=== PATIENT | male | born 1940 | race Caucasian/White ===

== ENCOUNTER → 2016-04-15 | Outpatient (CLI) | payer OTHER ==
[~2016-04-15] MED LIST: ACTOS30 MG PO; AZITHROMYCIN250 MG PO; BACTRIM,SEPT1 TABLET PO; CEFTIN500 MG PO; COUMADIN1 MG PO; DIGOXIN125 MCG PO; DOCU SOFT100 MG PO; FEROSUL325 MG PO; GLIPIZIDE10 M1 PO; GLUCOPHAGE1000 M1 PO; K-Dur PO; KLOR-CON20 MEQ PO; LANTUS 10100 UNITS/ SC; LASIX40 MG PO; LOVENOX100 MG/1 M SC; LOW DOSE ASPIRI81 M2 PO; MAGOX 400400 MG PO; MULTIVITAMIN1 EAC2 PO; MYCOPHENOLATE500 MG PO; NORVASC5 MG PO; NOVOLOG 10100 UNITS/ SC; NOVOLOG PE100 UNITS/ SC; OSCAL, OYSTER500 MG PO; PERCOCET 5/31 TABLET PO; PRAVACHOL40 MG PO; PRAVASTATIN SOD80 MG PO; PREDNISONE5 MG PO; PROGRAF0.5 MG PO; Proventil,Ventolin H IH; TENORMIN25 MG PO; TUMS500 MG PO; VALCYTE450 MG PO; VFEND200 MG PO; VITAMIN D1000 UNIT PO; ZANTAC150 MG PO; ZESTRIL,PRINIVI10 MG PO
== END | disposition home or self-care (01) ==
LOC: RES 12:59
DX: Z94.2 Lung transplant status (principal); D89.9 Disorder involving the immune mechanism, unspecified
CPT/HCPCS: 94010

== ENCOUNTER → 2016-04-22 | Outpatient (CLI) | payer OTHER | END | disposition home or self-care (01) | LOC: RES 09:45 | DX: Z94.2 Lung transplant status (principal); D89.9 Disorder involving the immune mechanism, unspecified | CPT/HCPCS: 94010 ==

== ENCOUNTER → 2016-04-29 | Outpatient (CLI) | payer OTHER | END | disposition home or self-care (01) | LOC: RES 10:00 | DX: Z94.2 Lung transplant status (principal); D89.9 Disorder involving the immune mechanism, unspecified | CPT/HCPCS: 94010 ==

== ENCOUNTER → 2016-05-06 | Outpatient (CLI) | payer OTHER | END | disposition home or self-care (01) | LOC: RES 09:41 | DX: Z94.2 Lung transplant status (principal); D89.9 Disorder involving the immune mechanism, unspecified | CPT/HCPCS: 94010 ==

== ENCOUNTER → 2016-05-20 | Outpatient (CLI) | payer OTHER | END | disposition home or self-care (01) | LOC: RES 08:56 | DX: Z94.2 Lung transplant status (principal); D89.9 Disorder involving the immune mechanism, unspecified | CPT/HCPCS: 94010 ==

== ENCOUNTER → 2016-06-10 | Outpatient (CLI) | payer OTHER | END | disposition home or self-care (01) | LOC: RES 09:00 | DX: Z94.2 Lung transplant status (principal); D89.9 Disorder involving the immune mechanism, unspecified | CPT/HCPCS: 94010 ==

== ENCOUNTER → 2016-08-05 | Outpatient (CLI) | payer OTHER | END | disposition home or self-care (01) | LOC: RES 10:00 | DX: Z94.2 Lung transplant status (principal); D89.9 Disorder involving the immune mechanism, unspecified | CPT/HCPCS: 94010 ==

== ENCOUNTER → 2016-09-02 | Outpatient (CLI) | payer OTHER | END | disposition home or self-care (01) | LOC: RES 08:39 | DX: Z94.2 Lung transplant status (principal); D89.9 Disorder involving the immune mechanism, unspecified | CPT/HCPCS: 94010 ==

== ENCOUNTER → 2016-09-30 | Outpatient (CLI) | payer OTHER | END | disposition home or self-care (01) | LOC: RES 08:51 | DX: Z94.2 Lung transplant status (principal); D89.9 Disorder involving the immune mechanism, unspecified | CPT/HCPCS: 94010 ==

== ENCOUNTER → 2017-02-03 | Outpatient (CLI) | payer OTHER ==
[~2017-02-03] MED LIST changes: +ASPIR-LOW81 MG PO; +BENZONATATE100 MG PO; -COUMADIN1 MG PO; +COUMADIN5 MG PO; +CRESEMBA186 MG PO; +FUROSEMIDE20 MG PO; +HUMALOG100 UNIT/1 SC; -LOW DOSE ASPIRI81 M2 PO; +MYCOPHENOLATE250 MG PO; +NOVOLOG 10100 UNITS/ SQ; -OSCAL, OYSTER500 MG PO; +PREDNISONE10 MG PO; -PREDNISONE5 MG PO; +PROAIR HFA8.5 GM IH; +PROGRAF1 MG PO; +VITAMIN D31000 UNI2 PO; +WARFARIN SODIUM5 MG PO
== END | disposition home or self-care (01) ==
LOC: RES 10:00
DX: Z94.2 Lung transplant status (principal); D89.9 Disorder involving the immune mechanism, unspecified
CPT/HCPCS: 94010

== ENCOUNTER → 2017-03-03 | Outpatient (CLI) | payer OTHER | END | disposition home or self-care (01) | LOC: RES 08:00 | DX: Z94.2 Lung transplant status (principal); D89.9 Disorder involving the immune mechanism, unspecified | CPT/HCPCS: 94010 ==

== ENCOUNTER → 2017-04-12 | Outpatient (CLI) | payer OTHER | END | disposition home or self-care (01) | LOC: RES 04-02 11:00 | DX: Z94.2 Lung transplant status (principal); D89.9 Disorder involving the immune mechanism, unspecified | CPT/HCPCS: 94010 ==

== ENCOUNTER → 2017-04-26 | Outpatient (CLI) | payer OTHER | END | disposition home or self-care (01) | LOC: RES 08:44 | DX: Z94.2 Lung transplant status (principal); D89.9 Disorder involving the immune mechanism, unspecified | CPT/HCPCS: 94010 ==

== ENCOUNTER → 2017-05-31 | Outpatient (CLI) | payer OTHER | END | disposition home or self-care (01) | LOC: RES 08:00 | DX: Z94.2 Lung transplant status (principal); D89.9 Disorder involving the immune mechanism, unspecified | CPT/HCPCS: 94010 ==

== ENCOUNTER → 2017-06-28 | Outpatient (CLI) | payer OTHER | END | disposition home or self-care (01) | LOC: RES 08:10 | DX: Z94.2 Lung transplant status (principal); D89.9 Disorder involving the immune mechanism, unspecified | CPT/HCPCS: 94010 ==

== ENCOUNTER → 2017-07-28 | Outpatient (CLI) | payer OTHER | END | disposition home or self-care (01) | LOC: RES 09:00 | DX: Z94.2 Lung transplant status (principal); D89.9 Disorder involving the immune mechanism, unspecified | CPT/HCPCS: 94010 ==

== ENCOUNTER 2017-08-12 09:09 | Day surgery (SDC) | payer OTHER ==
[~2017-08-12] VITALS: Ht 170.2 cm; Wt 97.0 kg
[~2017-08-12 09:09] MED LIST changes: +COUMADIN4 MG PO; +FLOMAX0.4 MG PO; +GABAPENTIN300 MG PO; +METOPROLOL TART25 MG PO
== END 2017-08-12 19:01 | disposition home or self-care (01) ==
LOC: CATH 09:09
PROVIDERS: Internal Medicine Interventional Cardiology
DX: Q24.5 Malformation of coronary vessels (principal); I42.9 Cardiomyopathy, unspecified; R06.02 Shortness of breath; Z94.2 Lung transplant status; J84.10 Pulmonary fibrosis, unspecified; I48.0 Paroxysmal atrial fibrillation; I10 Essential (primary) hypertension; E11.9 Type 2 diabetes mellitus without complications; E78.5 Hyperlipidemia, unspecified; Z86.711 Personal history of pulmonary embolism; Z87.891 Personal history of nicotine dependence; Z91.041 Radiographic dye allergy status; Z79.01 Long term (current) use of anticoagulants; Z79.82 Long term (current) use of aspirin; Z79.4 Long term (current) use of insulin; R63.5 Abnormal weight gain; Z68.33 Body mass index [BMI] 33.0-33.9, adult
CPT/HCPCS: 82948; 93005; C1750; C1769; C1887; C1894; J1200; J1644; J2250; J2765; J2930; J3010; J7040

== ENCOUNTER → 2017-08-25 | Outpatient (CLI) | payer OTHER | END | disposition home or self-care (01) | LOC: RES 08:58 | DX: Z94.2 Lung transplant status (principal); D89.9 Disorder involving the immune mechanism, unspecified | CPT/HCPCS: 94010 ==

== ENCOUNTER → 2017-09-22 | Outpatient (CLI) | payer OTHER | END | disposition home or self-care (01) | LOC: RES 08:44 | DX: Z94.2 Lung transplant status (principal); D89.9 Disorder involving the immune mechanism, unspecified | CPT/HCPCS: 94010 ==